=== PATIENT | male | born 1990 | race Caucasian/White ===

== ENCOUNTER 2018-04-27 08:34 | Emergency (ER) | payer OTHER ==
[~2018-04-27] VITALS: Ht 182.9 cm; Wt 82.0 kg
[2018-04-27 08:38] VITALS: BP 136/70; PULSE 102; RESP 16; TEMP 98.3; O2SAT 99
[2018-04-27] MEDS ORDERED: KETOROLAC TROMETHAMINE 30 MG/ML (IVP) VIAL IVP ONE (09:30)
[2018-04-27] MEDS ORDERED: SODIUM CHLORIDE 0.9% FLUSH 10 ML FLUSH IVF PRN (09:30)
[2018-04-27] MEDS ORDERED: SODIUM CHLOR 0.9% 1000 ML INJ 1,000 ML IV ONE (09:30)
--- NOTE | 2018-04-27 09:37 | PD ---
HPI Chief Complaint: GI Complaint Time Seen by Provider: 09:09 Travel History International Travel<30 days: Yes Contact w/Intl Traveler<30days: Yes Name of Country Traveled to: [place] Traveled to known affect area: No History of Present Illness HPI 27-year-old male presents emergency department for evaluation of nausea, vomiting, weakness, dysuria, and back pain that is been present since about 3 AM this morning. Says that he woke up and had several episodes of nonbloody vomitus associated with decreased appetite. Patient currently denies any nausea or vomiting the says that he still feels weak. His girlfriend is in the room is concerned about "numbness" the patient complains of an his extremities. Patient does not complain of this currently. Denies fevers or chills. Denies abdominal pain. Denies recent travel, new foods. Says he drinks beer occasionally had 2 beers last night which is more than what he usually drinks. Says he also occasionally smokes cigarettes with rare marijuana use. Denies any other illicit drug use. Says his last bowel movement was 2 days ago but this is normal for him. Patient says he has had one sexual partner in the last month. He denies penile discharge or lesions. PFSH Past Medical History Medical History: Denies Significant Hx Hx Anticoagulant Therapy: No Diabetes: No Diminished Hearing: No Tetanus Vaccination: Unknown Past Surgical History Surgical History: No Previous Surgery Social History Alcohol Use: Yes (RARE) Tobacco Use: Yes Substance Use: No Allergies-Medications (Allergen,Severity, Reaction): Coded Allergies: No Known Allergies (Unverified , 04/27/18) Reported Meds & Prescriptions Reported Meds & Active Scripts Active No Active Prescriptions or Reported Medications Review of Systems Except as stated in HPI: all other systems reviewed are Neg Physical Exam Narrative GENERAL: Well-developed, well-nourished in no apparent distress SKIN: Focused skin assessment warm/dry. HEAD: Atraumatic. Normocephalic. EYES: Pupils equal and round. No scleral icterus. No injection or drainage. ENT: No nasal bleeding or discharge. Mucous membranes pink and moist. NECK: Trachea midline. No JVD. No lymphadenopathy CARDIOVASCULAR: Regular rate and rhythm. No murmur appreciated. RESPIRATORY: No accessory muscle use. Clear to auscultation. Breath sounds equal bilaterally. GASTROINTESTINAL: Abdomen soft, non-tender, nondistended. Hepatic and splenic margins not palpable. Mild CVA tenderness to the left MUSCULOSKELETAL: No obvious deformities. No clubbing. No cyanosis. No edema. NEUROLOGICAL: Awake and alert. No obvious cranial nerve deficits. Motor grossly within normal limits. Normal speech. PSYCHIATRIC: Appropriate mood and affect; insight and judgment normal. Data Data Last Documented VS Vital Signs Date Time Temp Pulse Resp B/P (MAP) Pulse Ox O2 Delivery O2 Flow Rate FiO2 04/27/18 11:12 78 16 108/50 (69) 99 04/27/18 08:38 98.3 Orders Orders Complete Blood Count With Diff (04/27/18 09:19) Comprehensive Metabolic Panel (04/27/18:19) Urinalysis - C+S If Indicated (04/27/18:19) Iv Access Insert/Monitor (04/27/18 09:19) Ketorolac Inj (Toradol Inj) (04/27/18 09:30) Sodium Chloride 0.9% Flush (Ns Flush) (04/27/18 09:30) Sodium Chlor 0.9% 1000 Ml Inj (Ns 1000 M (04/27/18 09:30) Lipase (04/27/18 09:19) Ed Discharge Order (04/27/18 10:59) Labs Laboratory Tests Test 04/27/18 09:30 04/27/18 09:41 White Blood Count 11.8 TH/MM3 Red Blood Count 5.79 MIL/MM3 Hemoglobin 16.1 GM/DL Hematocrit 47.0 % Mean Corpuscular Volume 81.3 FL Mean Corpuscular Hemoglobin 27.9 PG Mean Corpuscular Hemoglobin Concent 34.3 % Red Cell Distribution Width 12.3 % Platelet Count 191 TH/MM3 Mean Platelet Volume 10.6 FL Neutrophils (%) (Auto) 93.1 % Lymphocytes (%) (Auto) 2.6 % Monocytes (%) (Auto) 3.6 % Eosinophils (%) (Auto) 0.5 % Basophils (%) (Auto) 0.2 % Neutrophils # (Auto) 10.9 TH/MM3 Lymphocytes # (Auto) 0.3 TH/MM3 Monocytes # (Auto) 0.4 TH/MM3 Eosinophils # (Auto) 0.1 TH/MM3 Basophils # (Auto) 0.0 TH/MM3 CBC Comment DIFF FINAL Differential Comment Blood Urea Nitrogen 24 MG/DL Creatinine 1.10 MG/DL Random Glucose 124 MG/DL Total Protein 7.9 GM/DL Albumin 4.5 GM/DL Calcium Level 9.3 MG/DL Alkaline Phosphatase 71 U/L Aspartate Amino Transf (AST/SGOT) 16 U/L Alanine Aminotransferase (ALT/SGPT) 24 U/L Total Bilirubin 1.4 MG/DL Sodium Level 139 MEQ/L Potassium Level 3.6 MEQ/L Chloride Level 105 MEQ/L Carbon Dioxide Level 23.4 MEQ/L Anion Gap 11 MEQ/L Estimat Glomerular Filtration Rate 82 ML/MIN Lipase 86 U/L Urine Collection Type CLEAN CATCH Urine Color YELLOW Urine Turbidity CLEAR Urine pH 8.5 Urine Specific Reading 1.015 Urine Protein TRACE mg/dL Urine Glucose (UA) NEG mg/dL Urine Ketones 80 OR GREATER mg/dL Urine Occult Blood NEG Urine Nitrite NEG Urine Bilirubin NEG Urine Urobilinogen 1.0 MG/DL Urine Leukocyte Esterase NEG Urine RBC 0-3 /hpf Urine WBC 0-2 /hpf Urine Squamous Epithelial Cells 0-5 /hpf Microscopic Urinalysis Comment CULT NOT INDICATED MDM Medical Decision Making Medical Screen Exam Complete: Yes Emergency Medical Condition: Yes Differential Diagnosis Pyelonephritis, cystitis, urinary tract infection, nephrolithiasis Narrative Course 27-year-old male presents emergency department evaluation of weakness, nausea, vomiting and back pain that started early this morning. His girlfriend says that she also had an episode of nausea this morning but has since resolved. They were concerned that this possibly could be related to what they ate but is unsure. Vital signs are stable. Physical exam findings demonstrate a 27-year-old male, well-developed well- nourished in no acute distress. He does appear fatigued however, nontoxic and nonseptic. He has mild CVA tenderness on the left which explains his "back" pain. Labs ordered for evaluation. 1 L normal saline administered. Toradol for pain. Labs are significant for WBC 11.8, likely related to his nausea with vomiting. Electrolytes within normal limits. BUN/creatinine 24/1.10. Urine demonstrate ketones otherwise normal. I has an extensive discussion with the patient regarding possible imaging studies. He said that he would like to wait as he feels much better. He denies any nausea vomiting while in the emergency department today. He would like to go home. I gave him strict follow-up instructions regarding the possible development of kidney stones versus kidney infection. He states understanding. Advised that if he develops nausea with vomiting to return to the emergency department immediately. Advised to reduce the amount of soda that he drinks and drink water. I am comfortable with discharging this patient as he appears well and says his pain is all but resolved. He is discharged and advised to follow-up with his primary care physician. Diagnosis Primary Impression: Dehydration Referrals: Primary Care Physician Additional Instructions: Follow-up with your primary care physician within 2-3 days. If you develop nausea, vomiting or worsening pain, return to the emergency department immediately for evaluation. Drink plenty of water and reduce the amount of soda that you drink to reduce the possibility of worsening symptoms. Scripts No Active Prescriptions or Reported Meds Disposition: 01 DISCHARGE HOME Condition: Stable Irene Browne Apr 27, 2018 09:37
[2018-04-27 09:52] LABS: BILIRUBIN, URINE NEG (NEG); BLOOD, URINE NEG (NEG); GLUCOSE,URINE NEG (NEG); KETONE, URINE 80 OR GREATER mg/dL (NEG); NITRITE,URINE NEG (NEG); PH, URINE 8.5 (5.0-8.5); URINE COLOR YELLOW (YELLW/STRAW); URINE LEUKOCYTE ESTERASE NEG (NEG)
[2018-04-27 09:54] LABS: AUTOMATED NEUTROPHIL # 10.9 TH/MM3 (1.8-7.7); BASOPHIL % 0.2 % (0.0-2.0); EOSINOPHIL # 0.1 TH/MM3 (0-0.4); EOSINOPHIL % 0.5 % (0.0-4.0); HEMOGLOBIN 16.1 GM/DL (13.0-17.0); LYMPH % 2.6 % (9.0-44.0); LYMPHOCYTE # 0.3 TH/MM3 (1.0-4.8); MEAN CELL VOLUME 81.3 FL (80.0-100.0); MEAN CORPUSCULAR HEMOGLOBIN 27.9 PG (27.0-34.0); MEAN CORPUSCULAR HGB CONC 34.3 % (32.0-36.0); MEAN PLATELET VOLUME 10.6 FL (7.0-11.0); MONO % 3.6 % (0.0-8.0); MONOCYTE # 0.4 TH/MM3 (0-0.9); NEUT % 93.1 % (16.0-70.0); PLATELET COUNT 191 TH/MM3 (150-450); RED BLOOD COUNT 5.79 MIL/MM3 (4.50-5.90); RED CELL DISTRIBUTION WIDTH 12.3 % (11.6-17.2); WHITE BLOOD COUNT 11.8 TH/MM3 (4.0-11.0)
[2018-04-27 10:07] LABS: RBC, URINE 0-3 /hpf (0-3); SQUAMOUS EPITHELIAL CELL URINE 0-5 /hpf (0-5); WBC, URINE 0-2 /hpf (0-5)
[2018-04-27 10:22] LABS: CHLORIDE 105 MEQ/L (98-107); SODIUM (NA) 139 MEQ/L (136-145)
[2018-04-27 10:23] LABS: CALCIUM 9.3 MG/DL (8.5-10.1)
[2018-04-27 10:24] LABS: ALBUMIN 4.5 GM/DL (3.4-5.0); BICARBONATE 23.4 MEQ/L (21.0-32.0); GLUCOSE,RANDOM 124 MG/DL (74-106)
[2018-04-27 10:27] LABS: ALT (GPT) 24 U/L (12-78); AST (GOT) 16 U/L (15-37); GLOMERULAR FILTRATION RATE 82 ML/MIN (>89)
[2018-04-27 10:28] LABS: TOTAL BILIRUBIN ADULT 1.4 MG/DL (0.2-1.0)
[2018-04-27 10:30] LABS: ALKALINE PHOSPHATASE 71 U/L (45-117); TOTAL PROTEIN 7.9 GM/DL (6.4-8.2)
[2018-04-27 10:31] LABS: BLOOD UREA NITROGEN 24 MG/DL (7-18)
[2018-04-27 11:12] VITALS: BP 108/50
== END 2018-04-27 11:22 | disposition home or self-care (01) ==
LOC: PHED 08:34
DX: E86.0 Dehydration (principal); R11.2 Nausea with vomiting, unspecified; R30.0 Dysuria; R53.1 Weakness; R53.83 Other fatigue; M54.9 Dorsalgia, unspecified; F17.210 Nicotine dependence, cigarettes, uncomplicated
CPT/HCPCS: 80053; 81001; 83690; 85025; 96361; 96374; 99284; J1885; J7030